=== PATIENT | female | born 1970 | race Caucasian/White ===

== ENCOUNTER 2018-08-03 04:28 | Emergency (ER) | payer MEDICAID, OTHER ==
[~2018-08-03] VITALS: Wt 56.8 kg
--- NOTE | 2018-08-03 06:40 | ERD ---
ER Documentation Chief Complaint Chief Complaint SOB/ CHEST PAIN X'S 1 DAY HPI 48-year-old female presents for one episode of shortness of breath sensation that occurred earlier this morning. She has a history of hypothyroidism and is on Synthroid, she has no cardiac history, she has no history of coagulopathy, no history of DVT or PE. She has had this episode in the past, is not sure what caused it. Currently she feels well. There are no alleviating or aggravating factors, the episode lasted a few seconds, she not take any medication for it. She did not have a fever ROS All systems reviewed and are negative except as per history of present illness. PMhx/Soc History of Surgery: No Anesthesia Reaction: No Hx Neurological Disorder: No Hx Respiratory Disorders: No Hx Cardiac Disorders: No Hx Psychiatric Problems: No Hx Miscellaneous Medical Probl: Yes (Hypothyroidism) Hx Alcohol Use: No Hx Substance Use: No Hx Tobacco Use: No Smoking Status: Never smoker Physical Exam Vitals Vital Signs Date Temp Pulse Resp B/P (MAP) Pulse Ox O2 O2 Flow FiO2 Time Delivery Rate 08/03/18 98.5 92 17 108/85 99 Room Air 07:39 (93) 08/03/18 97.5 70 18 106/74 99 Room Air 05:00 (85) 08/03/18 97.5 71 18 141/71 99 04:38 (94) Physical Exam Const: No acute distress Head: Atraumatic Eyes: Normal Conjunctiva ENT: Normal External Ears, Nose and Mouth. Neck: Full range of motion. No meningismus. Resp: Clear to auscultation bilaterally Cardio: Regular rate and rhythm, no murmurs Abd: Soft, non tender, non distended. Normal bowel sounds Skin: No petechiae or rashes Back: No midline or flank tenderness Ext: No cyanosis, or edema Neur: Awake and alert Psych: Normal Mood and Affect Result Diagram: 08/03/18 0556 08/03/18 0556 Results 24 hrs Laboratory Tests Test 08/03/18 05:56 White Blood Count 6.5 10^3/ul Red Blood Count 4.35 10^6/ul Hemoglobin 11.8 g/dl Hematocrit 36.2 % Mean Corpuscular Volume 83.2 fl Mean Corpuscular Hemoglobin 27.1 pg Mean Corpuscular Hemoglobin Concent 32.6 g/dl Red Cell Distribution Width 13.2 % Platelet Count 276 10^3/UL Mean Platelet Volume 9.7 fl Immature Granulocytes % 0.300 % Neutrophils % 56.6 % Lymphocytes % 33.2 % Monocytes % 7.2 % Eosinophils % 2.2 % Basophils % 0.5 % Nucleated Red Blood Cells % 0.0 /100WBC Immature Granulocytes # 0.020 10^3/ul Neutrophils # 3.7 10^3/ul Lymphocytes # 2.2 10^3/ul Monocytes # 0.5 10^3/ul Eosinophils # 0.1 10^3/ul Basophils # 0.0 10^3/ul Nucleated Red Blood Cells # 0.0 10^3/ul Sodium Level 140 mmol/L Potassium Level 3.7 mmol/L Chloride Level 111 mmol/L Carbon Dioxide Level 23 mmol/L Anion Gap 6 Blood Urea Nitrogen 8 mg/dl Creatinine 0.63 mg/dl Est Glomerular Filtrat Rate mL/min > 60 mL/min Glucose Level 99 mg/dl Calcium Level 9.0 mg/dl Total Bilirubin 0.0 mg/dl Direct Bilirubin 0.00 mg/dl Indirect Bilirubin 0.0 mg/dl Aspartate Amino Transf (AST/SGOT) 23 IU/L Alanine Aminotransferase (ALT/SGPT) 17 IU/L Alkaline Phosphatase 61 IU/L Troponin I < 0.012 ng/ml B-Type Natriuretic Peptide 75 PG/ML Total Protein 6.7 g/dl Albumin 3.6 g/dl Globulin 3.10 g/dl Albumin/Globulin Ratio 1.16 Procedures/MDM 40-year-old female presents for evaluation of an isolated episode of shortness of breath. Associated with left rib cage pain, her chest x-ray was negative, her symptoms were atypical for acute coronary syndrome given the short duration, and nonmotile quality as well as the fact that they self resolved. While the patient was monitored in the ED, she had no recurrent symptoms felt well, and otherwise felt comfortable with discharge home, at discharge she was in no acute distress. CBC: no e/o of systemic infection or severe anemia CMP: no e/o severe acidosis, renal failure, diabetic ketoacidosis, liver disease Lipase: no e/o pancreatitis Troponin: no e/o acute ischemia Chest X-ray 1V Interpreted by me: Soft Tissue: No acute abnormalities Bones: No acute abnormalities Mediastinum/Cardiac Silhouette/Lungs: No acute abnormalities EKG: Rate/Rhythm: Normal Sinus Rhythm QRS, ST, T-waves: No changes consistent w/ acute ischemia Impression: No evidence of ischemia or arrhythmia Departure Diagnosis: Primary Impression: Shortness of breath Condition: Stable JACQUELINE GIL MD Aug 03, 2018 06:40
[2018-08-03 07:39] VITALS: BP 108/85; PULSE 92; RESP 17
== END 2018-08-03 07:45 | disposition home or self-care (01) ==
LOC: E/R 04:28
DX: R06.02 Shortness of breath (principal); E03.9 Hypothyroidism, unspecified
CPT/HCPCS: 36415; 71045; 80053; 83880; 84484; 85025; 93005; Z7502